=== PATIENT | male | born 1940 | race Caucasian/White ===

== ENCOUNTER 2022-08-16 08:58 | Day surgery (SDC) | payer OTHER, BC ==
[2022-08-15 15:08] LABS: Potassium 4.8 mEq/L (3.5-5.1)
[2022-08-16] MEDS ORDERED: Ringers Lactate 1,000 ML IV ONE (09:36)
[2022-08-16] MEDS ORDERED: CEFAZOLIN SODIUM 2 GM/VIAL ONE (09:36)
[2022-08-16] MEDS ORDERED: BUPIVACAINE 0.25% PF 30 ML VIAL ONE (09:41)
[2022-08-16] MEDS ORDERED: SCOPOLAMINE HYDROBROMIDE PATCH TD ONE (10:48)
[2022-08-16] MEDS ORDERED: ROCURONIUM 50 MG/5 ML VIAL IV ONE (10:50)
[2022-08-16] MEDS ORDERED: propofoL 200 MG/20 ML VIAL IV ONE (10:50)
[2022-08-16] MEDS ORDERED: LIDOCAINE 2% MPF 5 ML VIAL ONE (10:50)
[2022-08-16] MEDS ORDERED: MIDAZOLAM HCL 2 MG/2 ML INJ ONE (10:50)
[2022-08-16] MEDS ORDERED: FENTANYL CITR 100 MCG/2 ML ONE (10:50)
[2022-08-16] MEDS ORDERED: ONDANSETRON 4 MG/2 ML VIAL ONE ×2 (10:51→14:55)
--- NOTE | 2022-08-16 12:18 | P.OP ---
Preoperative diagnosis: Umbilical + Periumbilical Hernias Postoperative diagnosis: Umbilical + Periumbilical Hernias Primary procedure: Laparoscopic Ventral Hernia Repair with mesh Anesthesia: GETA + Local Estimated blood loss: <5cc Specimen: None Findings: multiple small hernias, containing omentum Complications: None Implants: Bard Ventralite ST mesh, Sorbafix tacks x 45 Transferred to: Recovery Room Condition: Good
[2022-08-16] MEDS: HYDROMORPHONE HCL 1 MG/ML INJ ONE ×4 (12:30→12:45)
[2022-08-16 13:20] VITALS: TEMP 97.3; O2SAT 98
[2022-08-16] MEDS ORDERED: HYDROCODONE/APAP 7.5/325 MG TAB ONE (13:31)
--- NOTE | 2022-08-16 13:48 | OP ---
Date of Procedure: 08/16/2022 Surgeon: Rickie Ricketts MD, Preoperative Diagnosis: Umbilical plus periumbilical hernias. Postoperative Diagnosis: Umbilical plus periumbilical hernias. Procedure Performed: Laparoscopic ventral hernia repair with mesh. Anesthesia: General endotracheal plus local with 0.25% Marcaine. Estimated Blood Loss: Less than 5 cc. Specimen: None. Findings: Multiple small ventral hernias containing omentum entrapped and incarcerated within, requi ring adhesiolysis. Complications: None. Implants: Bard Ventralight ST mesh with Echo positioning system 11.4 cm round mesh utilized, SorbaFi x absorbable fixation tacks, 45 tacks utilized. Disposition: The patient was transferred to the recovery room in good condition. Procedure In Detail: After informed consent was obtained, patient was prepped and draped in the usua l sterile fashion after adequate anesthesia was achieved. The area of the left lower quadrant was an esthetized with 0.25% Marcaine, sharply incised. A 5 mm trocar was placed under direct visualization without evidence of complication. Insufflation was obtained with 15 mmHg at this time. There was n o injury to vital structure upon entry into the abdomen. Additional trocar was placed in the left lo wer quadrant, was anesthetized with 0.25% Marcaine, and sharply incised and a 12 mm trocar placed und er direct visualization without evidence of complication. At this point, the LigaSure device was use d to take down omentum of the anterior abdominal wall which was contained within an umbilical hernia as well as a periumbilical hernia which was approximately 2 cm away from the hernia defect. These he rnia defects were approximately 1.5 to 2 cm in size at approximately 5 cm away from each other at the edges. After the area was inspected and the hernia was sized appropriately, I swept back preperiton eal fat using the LigaSure device until a good peritoneal and fascial lining was appreciated. I then brought the Endo Stitch with V-Loc suture and suture closed the defects imbricating the hernia sac a t this point with good approximation of tissues. At this point, the 11.[address] mesh with Echo positioning System was deployed in the central portion of the defect allowing for coverage with a minimum of 5 cm of underlay on both areas of the hernia defect. At this point, the SorbaFix absorbable fixation tacks were used to place a single crown of the anterior abdominal wall. The ball oon deployment system was removed, found to be intact on back table. A second crown was then applied to the anterior abdominal wall securing the mesh to the anterior abdominal wall. A total of 45 tack s were used with good mesh approximation to the anterior abdominal wall. After this was performed, t he areas were inspected. No hemostatic measures were required. I then closed the 12 mm trocar site using a Allan-Lucille suture passer with an 0 Vicryl in interrupted fashion, good approximation of tissues. The abdomen was then completely desufflated under direct visualization without evidence of complication. Remainder of trocars were removed. All skin edges were copiously irrigated, closed wi th 4-0 Monocryl in a running fashion. Dermabond was placed over top. The patient tolerated the proc edure without evidence of any complication and transferred to PACU in good condition. All counts wer e correct at the end of the case. MARV/CHRISTIAN Voice ID: [id number] Report ID: [id number]
[2022-08-16 15:14] VITALS: BP 205/85
== END 2022-08-16 15:00 | disposition home or self-care (01) ==
LOC: OR 08:58
PROVIDERS: ATTEND Surgery
PROC: 0WUF4JZ Supplement Abdominal Wall with Synthetic Substitute, Percutaneous Endoscopic Approach (ICD-10-PCS; principal; 2022-08-16 10:30)
DX: K42.0 Umbilical hernia with obstruction, without gangrene (principal); E78.00 Pure hypercholesterolemia, unspecified; K21.9 Gastro-esophageal reflux disease without esophagitis; G47.33 Obstructive sleep apnea (adult) (pediatric)
CPT/HCPCS: 36415; 80048; C1781; J1170; J2001; J2250; J2405; J2704; J3010; J7120